=== PATIENT | female | born 1980 | race American Indian/Alaskan Native ===

== ENCOUNTER 2016-11-19 18:50 | Emergency (ER) | payer MEDICAID ==
[2016-11-19 18:50] VITALS: BMI 26.6
[2016-11-19 19:05] VITALS: RESP 16; TEMP 98.1; O2SAT 98
[2016-11-19] MEDS ORDERED: TDAP Vaccine 0.5 mL Syr IM ONE (19:17)
--- NOTE | 2016-11-19 19:19 | ED PDOC ---
Arrival/HPI - General Historian: Patient - History of Present Illness Time/Duration: Prior to Arrival Symptom Onset: Sudden Symptom Course: Unchanged Severity Level: Mild Activities at Onset: Light Context: Work - General Chief Complaint: Abnormal Skin Integrity Time Seen by Provider: 11/19/16 19:17 - History of Present Illness Narrative History of Present Illness (Text): 11/19/16 19:20 Bekah Durham is a 35 year old female who presents to the emergency department complaining of laceration to right forehead. Patient was bending forehead when the edge of a glass table punctured her 2cm above right eyebrow. Patient unsure of her last tetanus shot. Denies any other complaints (Alfonso Mcclure) Past Medical History - Provider Review Nursing Documentation Reviewed: Yes - Infectious Disease Hx of Infectious Diseases: None - Tetanus Immunization Tetanus Immunization: Unknown - Past Medical History Past Medical History: No Previous - Cardiac Hx Cardiac Disorders: No - Pulmonary Hx Respiratory Disorders: No - Neurological Hx Neurological Disorder: No - HEENT Hx HEENT Disorder: No - Renal Hx Renal Disorder: No - Endocrine/Metabolic Hx Endocrine Disorders: No - Hematological/Oncological Hx Blood Disorders: Yes Hx Anemia: Yes - Integumentary Hx Dermatological Disorder: No - Musculoskeletal/Rheumatological Hx Musculoskeletal Disorders: No - Gastrointestinal Hx Gastrointestinal Disorders: No - Genitourinary/Gynecological Hx Genitourinary Disorders: No - Psychiatric Hx Psychophysiologic Disorder: No Hx Substance Use: No - Surgical History Hx Appendectomy: Yes - Anesthesia Hx Anesthesia: Yes Hx Anesthesia Reactions: No Hx Malignant Hyperthermia: No - Suicidal Assessment Feels Threatened In Home Enviroment: No Family/Social History - Physician Review Nursing Documentation Reviewed: Yes Family/Social History: No Known Family HX Smoking Status: Former Smoker Hx Alcohol Use: Yes Hx Substance Use: No Hx Substance Use Treatment: No Allergies/Home Meds Allergies/Adverse Reactions: Allergies No Known Allergies Allergy (Verified 05/01/16 10:00) Home Medications: Home Meds Medication Instructions Recorded Confirmed Ferrous Sulfate [Ferosul] 325 mg PO BID 05/01/16 11/19/16 Review of Systems - Physician Review All systems were reviewed & negative as marked: Yes - Review of Systems Constitutional: Normal. absent: Fatigue, Fevers Respiratory: Normal. absent: SOB, Cough Cardiovascular: Normal. absent: Chest Pain, Palpitations Gastrointestinal: Normal. absent: Abdominal Pain, Diarrhea, Nausea, Vomiting Musculoskeletal: Normal. absent: Arthralgias, Back Pain Skin: Laceration (superficial laceration above right eyebrow ) Neurological: Normal. absent: Headache, Dizziness Physical Exam Vital Signs Reviewed: Yes Temperature: Afebrile Blood Pressure: Normal Pulse: Regular Respiratory Rate: Normal Appearance: Positive for: Well-Appearing, Non-Toxic, Comfortable Pain Distress: None Mental Status: Positive for: Alert and Oriented X 3 - Systems Exam Head: Present: Normocephalic, Laceration (1.5 cm transverse superfical laceration with good sensation and motor. ) Pupils: Present: PERRL Extroacular Muscles: Present: EOMI Conjunctiva: Present: Normal Mouth: Present: Moist Mucous Membranes Respiratory/Chest: Present: Clear to Auscultation, Good Air Exchange. No: Respiratory Distress, Accessory Muscle Use Cardiovascular: Present: Regular Rate and Rhythm, Normal S1, S2. No: Murmurs Abdomen: Present: Normal Bowel Sounds. No: Tenderness, Distention, Peritoneal Signs Upper Extremity: Present: Normal Inspection. No: Cyanosis, Edema Lower Extremity: Present: Normal Inspection. No: Edema Neurological: Present: GCS=15, CN II-XII Intact, Speech Normal, Motor Func Grossly Intact, Normal Sensory Function Skin: Present: Warm, Dry, Normal Color. No: Rashes Psychiatric: Present: Alert, Oriented x 3, Normal Insight, Normal Concentration Medical Decision Making Re-evaluation Time: 19:38 Reassessment Condition: Re-examined, Improved ED Course and Treatment: Patient given a tetanus shot. Laceration repaired with Dermabond. She is stable for discharge with followup with PMD within 1-2 days for wound care. 11/19/16 19:38 Re-evaluation. Patient feels better. Discussed results and plan with patient who expresses understanding. Counseling was provided regarding the diagnosis and prognosis. All questions answered and there is agreement with the plan to discharge home with instructions. Patient stable for discharge. Return if symptoms persist or worsen (Alfonso Mcclure) - Medication Orders Current Medication Orders: Discontinued Medications Cephalexin Monohydrate (Keflex) 500 mg PO STAT STA PRN Reason: Protocol Stop: 11/19/16 19:18 Last Admin: 11/19/16 19:36 Dose: 500 mg Tetanus/Reduced Diphtheria/Acell Pertussis (Boostrix Vaccine Inj) 0.5 ml IM .ONCE ONE Stop: 11/19/16 19:18 Last Admin: 11/19/16 19:36 Dose: 0.5 ml Disposition/Present on Arrival - Present on Arrival Any Indicators Present on Arrival: No History of DVT/PE: No History of Uncontrolled Diabetes: No Urinary Catheter: No History of Decub. Ulcer: No History Surgical Site Infection Following: None - Disposition Have Diagnosis and Disposition been Completed?: Yes Disposition Time: 19:38 Patient Plan: Discharge - Disposition Diagnosis: Facial laceration Disposition: HOME/ ROUTINE Condition: GOOD Discharge Instructions (ExitCare): Facial Laceration (ED) Additional Instructions: Call private doctor for follow up visit an wound recheck in 2-3 days. Keep wound cleana nd dry for 2 days, then clean wound with soap and water daily. Return to emergency if symptoms worsen. Prescriptions: Cephalexin [cephalexin] 500 mg PO QID #20 cap Referrals: [facility] [Outside] - Follow up with primary [facility] [Outside] - Follow up with primary Forms: [employer] (Bengali)
[2016-11-19 20:10] VITALS: BP 112/61; PULSE 89
== END 2016-11-19 20:07 | disposition home or self-care (01) ==
LOC: ED 18:50
DX: S01.81XA Laceration without foreign body of other part of head, initial encounter (principal); W22.03XA Walked into furniture, initial encounter; Y93.89 Activity, other specified; Y92.89 Other specified places as the place of occurrence of the external cause; Z23 Encounter for immunization